=== PATIENT | female | born 1990 | race Caucasian/White ===

== ENCOUNTER 2017-06-15 11:18 | Emergency (ER) | payer OTHER, MEDICAID ==
[~2017-06-15] VITALS: Ht 157.5 cm; Wt 99.8 kg
[~2017-06-15 11:18] MED LIST: ZOFRAN ODT4 MG PO
[2017-06-15 12:14] LABS: ABSOLUTE BASOPHILS 0.2 thou/uL (0.0-0.2); ABSOLUTE EOSINOPHILS 0.3 thou/uL (0.0-0.7); ABSOLUTE LYMPHOCYTES 3.2 thou/uL (0.8-5.3); ABSOLUTE MONOCYTES 0.5 thou/uL (0.0-1.2); ABSOLUTE NEUTROPHILS 7.4 thou/uL (1.6-8.1); BASOPHILS 1.5 %; EOSINOPHILS 2.8 %; HEMATOCRIT 43.2 % (37.0-47.0); HEMOGLOBIN 14.3 gm/dL (12.0-15.0); LYMPHOCYTES 27.6 %; MCH 29.8 pg (26.0-34.0); MCHC 33.2 g/dL (28.0-37.0); MCV 89.9 fL (80.0-100.0); MONOCYTES 3.9 %; MPV 7.1 fl. (7.2-11.1); NUCLEATED RBCS 0 /100WBC; PLATELET COUNT* 356 thou/uL (150-400); POLYS 64.2 %; RDW-CV 15.1 % (10.5-14.5); WBC 11.5 thou/uL (4.0-11.0)
[2017-06-15 12:17] LABS: CALCIUM 8.4 mg/dL (8.5-10.1); CREATININE 0.6 mg/dL (0.6-1.3); POTASSIUM 4.2 mmol/L (3.5-5.1)
[2017-06-15 12:22] LABS: ALBUMIN 3.2 g/dL (3.4-5.0); TOTAL BILIRUBIN 0.2 mg/dL (<0.1-1.0); TOTAL PROTEIN 6.8 g/dL (6.4-8.2)
[2017-06-15 13:42] LABS: URINE BILIRUBIN NEGATIVE (Negative); URINE BLOOD 3+ (Negative); URINE CLARITY CLEAR; URINE COLOR YELLOW; URINE GLUCOSE-RANDOM NEGATIVE (Negative); URINE KETONES NEGATIVE (Negative); URINE LEUKOCYTES-REFLEX 1+ (Negative); URINE NITRITE-REFLEX NEGATIVE (Negative); URINE PROTEIN TRACE (Negative); URINE SPECIFIC GRAVITY >= 1.030 (1.005-1.030); URINE UROBILINOGEN 0.2 E.U./dl (0.2-1.0)
[2017-06-15] MEDS ORDERED: CIPRO500 MG PO (13:45)
[2017-06-15] MEDS ORDERED: FLAGYL500 MG PO (13:45)
[2017-06-15] MEDS ORDERED: HYDROCODONE-AP1 EAC6 PO (13:45)
[2017-06-15 13:49] LABS: COARSE GRANULAR CASTS 4-10 Moderate /LPF (None Seen); CRYSTALS None Seen /LPF (None Seen); MUCUS None Seen strn/LPF (None Seen); SQUAMOUS >10 Many /LPF (0-3); URINE WBC-REFLEX 6-15 Few /HPF (0-5)
[2017-06-15 14:07] VITALS: BP 131/78
== END 2017-06-15 14:09 | disposition home or self-care (01) ==
LOC: M.ERS 11:18
PROVIDERS: Physician Assistant
DX: K52.9 Noninfective gastroenteritis and colitis, unspecified (principal); F17.210 Nicotine dependence, cigarettes, uncomplicated

== ENCOUNTER 2018-04-05 11:59 | Emergency (ER) | payer OTHER, MEDICAID ==
[~2018-04-05] VITALS: Ht 154.9 cm; Wt 85.7 kg
[~2018-04-05 11:59] MED LIST changes: +CIPRO500 MG PO; +FLAGYL500 MG PO; +HYDROCODONE-AP1 EAC6 PO
[2018-04-05] MEDS ORDERED: MAGOX 400400 MG PO (12:17)
[2018-04-05] MEDS ORDERED: MCT OIL PO (12:17)
[2018-04-05] MEDS ORDERED: WELLBUTRIN XL300 MG PO (12:17)
[2018-04-05] MEDS ORDERED: COLLAGEN PO (12:18)
[2018-04-05] MEDS ORDERED: IBUPROFEN 800800 M1 PO (12:18)
[2018-04-05 13:42] VITALS: BP 114/81
== END 2018-04-05 13:45 | disposition home or self-care (01) ==
LOC: M.ERS 11:59
DX: S93.691A Other sprain of right foot, initial encounter (principal); S80.01XA Contusion of right knee, initial encounter; F17.210 Nicotine dependence, cigarettes, uncomplicated; Z91.040 Latex allergy status; Z90.49 Acquired absence of other specified parts of digestive tract; W01.0XXA Fall on same level from slipping, tripping and stumbling without subsequent striking against object, initial encounter; Y92.89 Other specified places as the place of occurrence of the external cause; Y93.89 Activity, other specified; Y99.8 Other external cause status

== ENCOUNTER 2020-08-24 16:48 | Emergency (ER) | payer OTHER, MEDICAID ==
[~2020-08-24] VITALS: Ht 157.5 cm; Wt 86.2 kg
[~2020-08-24 16:48] MED LIST changes: +COLLAGEN PO; +IBUPROFEN 800800 M1 PO; +MAGOX 400400 MG PO; +MCT OIL PO; +WELLBUTRIN XL300 MG PO
[2020-08-24] MEDS ORDERED: AMPHETAMINE SAL20 M1 PO (17:00)
[2020-08-24 17:44] LABS: ABSOLUTE BASOPHILS 0.1 thou/uL (0.0-0.2); ABSOLUTE EOSINOPHILS 0.4 thou/uL (0.0-0.7); ABSOLUTE LYMPHOCYTES 3.4 thou/uL (0.8-5.3); ABSOLUTE MONOCYTES 0.8 thou/uL (0.0-1.2); ABSOLUTE NEUTROPHILS 6.5 thou/uL (1.6-8.1); BASOPHILS 0.6 %; EOSINOPHILS 3.2 %; HEMATOCRIT 40.6 % (37.0-47.0); HEMOGLOBIN 13.5 gm/dL (12.0-15.0); LYMPHOCYTES 30.8 %; MCHC 33.3 g/dL (28.0-37.0); MPV 6.6 fl. (7.2-11.1); NUCLEATED RBCS 0 /100WBC; PLATELET COUNT* 326 thou/uL (150-400); POLYS 58.4 %; RBC 4.37 mil/uL (4.20-5.00); RDW-CV 13.9 % (10.5-14.5); WBC 11.1 thou/uL (4.0-11.0)
[2020-08-24 17:55] LABS: CREATININE 0.5 mg/dL (0.6-1.3)
[2020-08-24 18:00] LABS: ALBUMIN 3.1 g/dL (3.4-5.0); TOTAL PROTEIN 6.6 g/dL (6.4-8.2)
[2020-08-24 18:12] LABS: TOTAL BILIRUBIN 0.1 mg/dL (<0.1-1.0)
[2020-08-24] MEDS ORDERED: MEDROLDOSEPACK PO (18:32)
[2020-08-24] MEDS ORDERED: ZPAK PO (18:32)
[2020-08-24 18:45] VITALS: BP 126/74
--- NOTE | 2020-08-25 10:30 | EKG ---
[place] [address] ELECTROCARDIOGRAM REPORT Name: TASHA MORAIQUE KARL Room: [facility]#: [id number] Admission: 08/24/20 Attend Phys: Discharge: 08/24/20 Date of : 88 Date of Service: 08/24/20 1725 Report #: [id number] THIS REPORT FOR: //name// [facility] ED Test Date: 2020-08-24 Test Time: 17:25:56 Pat Name: FRANCOIS MORA Department: Room: Gender: F Healthcare Applications Analyst: GABRIEL : 1990 Requested By: Jael Hurt Order Number: [id number] MD: Paulo Madera Measurements Intervals [place] Rate: 84 P: 25 DC: 126 QRS: 5 QRSD: 98 T: 23 QT: 364 QTc: 431 Interpretive Statements Sinus rhythm No previous ECG available for comparison Electronically Signed On 08-25-2020 10:30:01 CDT by Paulo Madera [email or web address] <ELECTRONICALLY SIGNED> By: Paulo Madera MD, [facility] 08/25/20 1030 24 24 Paulo Madera MD, FACC /EPI
== END 2020-08-24 18:46 | disposition home or self-care (01) ==
LOC: M.ERS 16:48
PROVIDERS: Nurse Practitioner Family
DX: R53.83 Other fatigue (principal); J44.1 Chronic obstructive pulmonary disease with (acute) exacerbation; F17.210 Nicotine dependence, cigarettes, uncomplicated; Z20.822 Contact with and (suspected) exposure to COVID-19; Z98.890 Other specified postprocedural states

== ENCOUNTER 2020-12-21 11:30 | Emergency (ER) | payer OTHER, MEDICAID ==
[~2020-12-21] VITALS: Ht 157.5 cm; Wt 100.9 kg
[~2020-12-21 11:30] MED LIST changes: +AMPHETAMINE SAL20 M1 PO; +MEDROLDOSEPACK PO; +ZPAK PO
[2020-12-21 11:49] LABS: ABSOLUTE BASOPHILS 0.2 thou/uL (0.0-0.2); ABSOLUTE EOSINOPHILS 0.3 thou/uL (0.0-0.7); ABSOLUTE LYMPHOCYTES 4.4 thou/uL (0.8-5.3); ABSOLUTE MONOCYTES 0.7 thou/uL (0.0-1.2); ABSOLUTE NEUTROPHILS 7.4 thou/uL (1.6-8.1); BASOPHILS 1.5 %; EOSINOPHILS 2.1 %; HEMATOCRIT 45.1 % (37.0-47.0); HEMOGLOBIN 15.3 gm/dL (12.0-15.0); LYMPHOCYTES 33.7 %; MCH 30.7 pg (26.0-34.0); MCHC 33.9 g/dL (28.0-37.0); MCV 90.7 fL (80.0-100.0); MONOCYTES 5.4 %; MPV 7.3 fl. (7.2-11.1); NUCLEATED RBCS 0 /100WBC; PLATELET COUNT* 357 thou/uL (150-400); POLYS 57.3 %; RBC 4.98 mil/uL (4.20-5.00); RDW-CV 13.6 % (10.5-14.5)
[2020-12-21 12:02] LABS: CALCIUM 9.3 mg/dL (8.5-10.1); CREATININE 0.7 mg/dL (0.6-1.3); POTASSIUM 3.4 mmol/L (3.5-5.1)
[2020-12-21 12:07] LABS: ALBUMIN 4.2 g/dL (3.4-5.0); TOTAL BILIRUBIN 0.2 mg/dL (<0.1-1.0); TOTAL PROTEIN 8.2 g/dL (6.4-8.2)
[2020-12-21] MEDS ORDERED: VENTOLIN HFA 1818 GM INH (12:33)
[2020-12-21] MEDS ORDERED: ATIVAN1 M1 PO (12:33)
[2020-12-21] MEDS ORDERED: BACTRIM DS TAB1 EAC1 PO (12:33)
[2020-12-21] MEDS ORDERED: PREDNISONE50 MG PO (12:33)
[2020-12-21 12:46] VITALS: BP 128/74
--- NOTE | 2020-12-21 16:01 | EKG ---
[place] [address] ELECTROCARDIOGRAM REPORT Name: FRANCOIS MORA Room: [facility]#: [id number] Admission: 12/21/20 Attend Phys: Discharge: 12/21/20 Date of : [birth year] Date of Service: 12/21/20 1150 Report #: [id number] THIS REPORT FOR: //name// [facility] ED Test Date: 2020-12-21 Test Time: 11:50:09 Pat Name: FRANCOIS MORA Department: Room: Gender: F Food Sales Clerk: : 1990 Requested By: Marshall Shirley Order Number: [id number] MD: Paulo Madera Measurements Intervals [place] Rate: 90 P: 55 CA: 144 QRS: -21 QRSD: 96 T: 29 QT: 367 QTc: 449 Interpretive Statements Sinus rhythm Inferior infarct, old Baseline wander in lead(s) V1 Compared to ECG 08/24/2020 17:25:56 no change Electronically Signed On 12-21-2020 16:01:24 CDT by Paulo Madera [email or web address] <ELECTRONICALLY SIGNED> By: Paulo Madera MD, FACC 12/21/20 1601 1150 1150 Paulo Madera MD, [facility] /EPI
== END 2020-12-21 12:47 | disposition home or self-care (01) ==
LOC: M.ERS 11:30
PROVIDERS: Emergency Medicine Emergency Medical Services
DX: L73.9 Follicular disorder, unspecified (principal); F41.9 Anxiety disorder, unspecified; J44.9 Chronic obstructive pulmonary disease, unspecified; F17.210 Nicotine dependence, cigarettes, uncomplicated; Z90.49 Acquired absence of other specified parts of digestive tract; Z79.899 Other long term (current) drug therapy; Z91.040 Latex allergy status